=== PATIENT | female | born 1945 | race Caucasian/White ===

== ENCOUNTER 2019-06-18 21:35 | Inpatient (IN) | payer OTHER ==
[~2019-06-18] VITALS: Ht 152.4 cm; Wt 63.5 kg
[~2019-06-18 21:35] MED LIST: CLEOCIN HCL150 MG PO; ESTRACE0.5 MG PO; ESTRACE1 MG PO; MEDROL DOSPAK21 TAB PO; NORCO 5-325 TA1 EACH PO; PAXIL20 MG PO; PROGESTERONE100 MG PO; PROVERA2.5 MG PO; ZOFRAN 4 MG ORAL4 MG SUBLING; ZOFRAN ODT4 MG PO
[2019-06-18 21:40] VITALS: BP 143/56
[2019-06-18 22:23] LABS: ABSOLUTE NEUTROPHILS 4.3 thou/uL (1.4-8.2); BASOPHILS 1.3 % (0.0-2.0); EOSINOPHILS 4.6 % (0.0-3.0); HEMATOCRIT 39.8 % (37.0-47.0); HEMOGLOBIN 13.4 gm/dL (12.0-15.0); LYMPHOCYTES 32.6 % (24.0-44.0); MCH 33.7 pg (26.0-34.0); MCHC 33.7 g/dL (28.0-37.0); MCV 100.1 fL (80.0-100.0); MONOCYTES 6.1 % (1.0-8.0); PLATELET COUNT 241 thou/uL (150-400); POLYS 55.4 % (36.0-66.0); RBC 3.97 mil/uL (4.20-5.00); RDW 12.9 % (10.5-14.5); WBC 7.8 thou/uL (4.0-11.0)
[2019-06-18 22:26] LABS: CALCIUM 9.5 mg/dL (8.5-10.1); CREATININE 0.8 mg/dL (0.6-1.0); POTASSIUM 3.1 mmol/L (3.5-5.1)
[2019-06-18 22:32] LABS: ALBUMIN 4.2 g/dL (3.4-5.0); TOTAL BILIRUBIN 0.4 mg/dL (<0.1-1.0); TOTAL PROTEIN 7.6 g/dL (6.4-8.2)
[2019-06-18] MEDS ORDERED: MECLIZINE HCL25 M1 PO (23:57)
[2019-06-18] MEDS ORDERED: ZOFRAN ODT4 MG PO (23:57)
[2019-06-19] VITALS (7 sets, daily range): BP systolic 96–120; BP diastolic 51–57
--- NOTE | 2019-06-19 01:14 | NUR ---
HANDOFF TOOL SENT TO FLOOR AT THIS TIME
--- NOTE | 2019-06-19 01:39 | NUR ---
REPORT TO HUEY DAVE
--- NOTE | 2019-06-19 02:51 | NUR ---
PATIENT AOX4 MAKES NEEDS KNOWN. NEW ADMIT FOR NAUSEA, VOMIT AND DIZZYNESS. PATIENT DENIED PAIN AND DISCOMFORT. PATIENT AMBULATES SLOWLY BUT C/O DIZZYNESS. PATIENT HAD EMESIS X1 THIS SHIFT. IV FLUIDS STARTED. CALL LIGHT AND PERSONAL ITEMS WITHIN REACH. PATIENT EDUCATED ON THE NEED TO CALL FOR HELP D/T DIZZYNESS. PATIENT CONTIENT THIS SHIFT. SKIN IS WARM AND INTACT. FALL PRECAUTION IN PLACE. PATIENT IN BED ASLEEP AT THIS TIME BREATHING REGULAR AND UNLABOURED.
[2019-06-19] MEDS ORDERED: ANTIVERT25 MG PO (08:14)
--- NOTE | 2019-06-19 19:28 | NUR ---
Assumed pt care this am, pt is very forgeful. No dizzyness, nuasea or vomiting have been noted through out the shift. Pt felt stuffy, benadryl partial relief was noted. VS have been stable no signs or verbalizations of distress have been noted. DC instructions and presctiptions given . IV removed. Pt was picked up by her friend Pop pt is now DC.
[2019-06-19 23:06] LABS: GLYCOHEMOGLOBIN (HGB A1C) 5.6 % (4.8-5.6)
== END 2019-06-19 19:35 | disposition home or self-care (01) | DRG 641 ==
LOC: ER 21:35 → EROBS 06-19 00:56 → 4W 06-19 00:56 → EROBS 06-19 00:56 → 4W 06-19 01:49
PROVIDERS: Emergency Medicine; Nurse Practitioner Acute Care; ADMIT Hospitalist
DX: E86.0 Dehydration (principal); E87.6 Hypokalemia; R73.9 Hyperglycemia, unspecified; Z79.899 Other long term (current) drug therapy
CPT/HCPCS: 10040